=== PATIENT | male | born 1950 | race Caucasian/White ===

== ENCOUNTER 2020-07-30 07:40 | Emergency (ER) | payer MEDICARE ==
[~2020-07-30] VITALS: Ht 185.4 cm; Wt 99.8 kg
[2020-07-30 08:04] VITALS: BP 168/111
[2020-07-30 08:08] VITALS: BP 168/111
--- NOTE | 2020-07-30 08:11 | NUR ---
ARRIVAL PATIENT ARRIVED TO [facility] VIA W/C, C/O OF RIGHT TOE PAIN TODAY, SON AND PATIENT DRIVING TO THE [facility] AND STOPPED HERE IN [place] FOR FURTHER EVAL BY THE EDP.
[2020-07-30 08:46] VITALS: BP 145/95
--- NOTE | 2020-07-30 08:52 | ER.PDOC ---
General Chief Complaint: Extremities Stated Complaint: INJURED FOOT Time seen by MD: 08:25 Source: patient, family Exam Limitations: no limitations History of Present Illness Initial Comments Patient c/o ingrown toenail x 2 days right great toe Onset: other (2 days ago) Where: home Severity: mild Modifying Factors: pain on movement Allergies: Coded Allergies: No Known Allergies (Unverified , 07/30/20) Past Medical History Medical History: CVA/TIA/stroke, cancer Surgical History: neck (for cancer), other Family History Significant Family History: no pertinent family hx Social History Smoking: non-smoker Alcohol Use: none Drug Use: none Review of Systems Constitutional: denies no symptoms reported, denies see HPI, denies chills, denies diaphoresis, denies fever, denies malaise, denies weakness, denies other EENTM: denies no symptoms reported, denies see HPI, denies eye pain, denies blurred vision, denies tearing, denies double vision, denies ear pain, denies ear discharge, denies nose pain, denies nose congestion, denies throat pain, denies throat swelling, denies mouth pain, denies mouth swelling, denies other Respiratory: denies no symptoms reported, denies see HPI, denies cough, denies orthopnea, denies shortness of breath, denies stridor, denies wheezing, denies other Cardiovascular: denies no symptoms reported, denies see HPI, denies chest pain, denies edema, denies palpitations, denies syncope, denies other Gastrointestinal: denies no symptoms reported, denies see HPI, denies abdominal pain, denies constipation, denies diarrhea, denies nausea, denies vomiting, denies other Genitourinary: denies no symptoms reported, denies see HPI, denies discharge, denies dysuria, denies frequency, denies hematuria, denies pain, denies other Musculoskeletal: denies no symptoms reported, denies see HPI, denies back pain, denies gout, denies joint pain, denies joint swelling, denies muscle pain, denies muscle stiffness, denies neck pain, denies other Skin: see HPI All Other Systems: Reviewed and Negative Physical Exam General Appearance: Alert, No Apparent Distress Foot: nml inspection, non-tender Ankle: nml inspection, non-tender Gait: limited by pain Neuro: sensation nml, motor nml Vascular: no vascular compromise Leg/Knee/Thigh: uninjured above ankle Skin: warm/dry (ingrown toenail right great toe) Head/ENT: nml inspection, pharynx nml Resp/CVS: lungs clear, heart sounds nml, reg. rate & rhythm Abdomen: non-tender, no organomegaly Results/Orders Results/Orders Vital Signs Date Time Temp Pulse Resp B/P (MAP) Pulse Ox O2 Delivery O2 Flow Rate FiO2 07/30/20 08:08 98.5 102 20 168/111 (130) 92 Room Air 07/30/20 08:04 98.5 102 20 168/111 (130) 92 Room Air 07/30/20 08:04 98.5 102 20 07/30/20 08:04 98.5 102 20 92 ER DEPART Departure Time of Disposition: 08:46 Disposition: 01 HOME, SELF-CARE Impression: Primary Impression: Ingrown toenail of right foot with infection Condition: Stable Patient Instructions: Infected Ingrown Toenail Referrals: PCP,UNKNOWN (PCP) PRIMARY CARE PROVIDER Additional Instructions: Take antibiotics as prescribed until all gone. Apply triple antibiotic ointment to right great toe twice daily with bandage. Go to nearest ER if symptoms wor sen, redness to foot/leg, or for any emergent concerns. Duration or Time Spent with Pa: 10 min HARSH LEONE DO Jul 30, 2020 08:52
== END 2020-07-30 08:55 | disposition home or self-care (01) ==
LOC: ER 07:40
DX: L60.0 Ingrowing nail (principal)
CPT/HCPCS: 99283